=== PATIENT | male | born 1995 | race Caucasian/White ===

== ENCOUNTER 2021-07-21 17:01 | Emergency (ER) | payer OTHER, SELFPAY ==
[2021-07-21 17:02] VITALS: BP 125/49; PULSE 72; RESP 18; TEMP 36.3; O2SAT 100
--- NOTE | 2021-07-21 18:25 | ED.SKABFB ---
HPI - Skin/Abscess/Foreign Bdy General Chief complaint: Skin/Abscess/Foreign Body Stated complaint: ARM WOUND Time Seen by Provider: 07/21/21 18:17 Source: patient Mode of arrival: ambulatory Limitations: no limitations History of Present Illness HPI narrative: This is a 25 year old male that presents to the ER for wound to the left arm present over the last week. Reports he was seen by urgent care for this and started on Bactrim. He has been taking this as prescribed without improvement. Reports he has now noted pus draining from the area. Denies fever or lymphangitic streaking. Related Data Allergies Allergy/AdvReac Type Severity Reaction Status Date / Time amoxicillin Allergy Unknown Verified 07/21/21 17:01 Review of Systems Review of Systems: CONSTITUTIONAL: Denies fever SKIN: Reports abscess All systems reviewed & are unremarkable except as noted in HPI and below PMFSH Past Medical History Medical History (Updated 07/21/21 @ 19:41 by Mikki Avilez PA-C) No active medical problems Social History Social History (Updated 07/21/21 @ 18:27 by Mikki Avilez PA-C) Substance use: current Substance use type: marijuana Gender identity (if verbalized by the patient): Male Exam Narrative: GENERAL: Well-appearing, well-nourished, and in no acute distress. HEAD: Normocephalic, atraumatic. EYES: EOMI. EXTREMITIES: Normal range of motion. No edema. Left forearm with 2cm area of erythema and edema, small amount of purulent fluid is expressible SKIN: Warm, dry, no rash. NEURO: No focal deficits. Alert and oriented x3. PSYCH: Normal mood and affect Course Vital Signs Vital signs: Vital Signs Temperature 97.3 F L 07/21/21 17:02 Pulse Rate 72 07/21/21 17:02 Respiratory Rate 18 07/21/21 17:02 Blood Pressure 125/49 L 07/21/21 17:02 Pulse Oximetry 100 07/21/21 17:02 Temperature 97.3 F L 07/21/21 17:02 Pulse Rate 72 07/21/21 17:02 Respiratory Rate 18 07/21/21 17:02 Blood Pressure 125/49 L 07/21/21 17:02 Pulse Oximetry 100 07/21/21 17:02 Procedures Abscess I/D upper extremity: Date of Incision: 07/21/21 Time of Incision: 19:43 Side (if applicable): left Local Anesthetic: lidocaine 1% and with epi Amount of anesthesia used (mL): 2 Technique: incised with #11 blade Irrigation: Yes Packing used?: none I&D Results: Pus and Blood MDM - Skin/Abscess/Foreign Bdy MDM Narrative Medical decision making narrative: Patient presents to the emergency department for a small abscess to the left forearm. Present over the last week. He has been treated with oral antibiotics without improvement. Started to note some drainage from the area. He is afebrile and nontoxic-appearing. I&D was performed. Wound culture was sent. Will change patient's antibiotic to clindamycin awaiting culture results. He is to follow-up with his primary care doctor. He was given warnings to return to the ER Critical Care Time Critical Care Time Critical Care Time: No Discharge Plan Discharge Clinical Impression: Abscess of skin or subcutaneous tissue Qualifiers: Site of cutaneous abscess: extremity Site of cutaneous abscess of extremity: upper extremity Laterality: left Qualified Code(s): L02.414 - Cutaneous abscess of left upper limb Patient Disposition: Home, Self-Care Condition: Stable Instructions: Antibiotic Form, Abscess (ED) Additional Instructions: Return if symptoms worsen or concerns: any increase in redness, swelling, pain, or fever over 101 Take antibiotics as directed. Clean wound with mild soapy water. Apply antibiotic ointment and clean dressing at least three times daily. Warm compresses 3 times a day for 30 minutes each Follow up with primary care in the next 2-3 days for re-evaluation Prescriptions: New clindamycin HCl 150 mg capsule 450 mg PO Q8H 10 Days Qty: 90 RF: 0 Follow-up/Referrals: Cristy Mir
== END 2021-07-21 20:17 | disposition home or self-care (01) ==
PROVIDERS: Emergency Provider Emergency Medicine; PCP Pediatrics
DX: L02.414 Cutaneous abscess of left upper limb (principal)
CPT/HCPCS: 10060; 87070; 87147; 87186; 87205; 96372; 99283

== ENCOUNTER 2021-11-04 11:24 | Emergency (ER) | payer OTHER, SELFPAY ==
--- NOTE | ~2021-11-04 | CT_ITS ---
EXAMINATION: CT brain wo con DATE: 11/04/2021 13:09 INDICATION: Head injury. TECHNIQUE: Computed tomography (CT) of the head was performed without intravenous contrast. The mA wa s adjusted according to patient size. Iterative reconstruction technique was employed. The dose-lengt h product was 681.00 mGy-cm. COMPARISON: None FINDINGS: There is no intracranial hemorrhage, acute infarction, or abnormal intracranial mass lesion . The ventricles are normal in size. The paranasal sinuses are clear. The orbits are normal. The mast oid air cells are normal. IMPRESSION: 1. Normal brain. Reviewed, dictated and finalized at location A. N RESOURCES ADVISOR IMPRESSION: 1. Normal brain.
[2021-11-04 11:26] VITALS: BP 134/69; PULSE 63; RESP 16; TEMP 35.7; O2SAT 100
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
== END 2021-11-04 13:39 | disposition home or self-care (01) ==
PROVIDERS: Emergency Provider Emergency Medicine
DX: S06.0X1A Concussion with loss of consciousness of 30 minutes or less, initial encounter (principal); V86.55XA Driver of 3- or 4- wheeled all-terrain vehicle (ATV) injured in nontraffic accident, initial encounter
CPT/HCPCS: 70450; 99284